=== PATIENT | female | born 1985 | race Caucasian/White ===

== ENCOUNTER 2017-08-12 05:20 | Inpatient (IN) | payer MEDICAID ==
[~2017-08-12] VITALS: Ht 152.4 cm; Wt 66.5 kg
[~2017-08-12 05:20] MED LIST: IBUP800T25 PO; PERCOCET PO
[2017-08-12 05:42] VITALS: BP 119/69; PULSE 20; RESP 20; Ht 152.4 cm; Wt 66.5 kg
[2017-08-12] MEDS ORDERED: LACTATED RINGER'S 1,000 ML IV SCH (05:56)
[2017-08-12] MEDS ORDERED: OXYTOCIN 30 UNITS/LR 500 ML IV SCH (06:00)
[2017-08-12] MEDS ORDERED: OXYTOCIN 30 UNITS/LR 500 ML IV PRN ×2 (06:00→10:30)
[2017-08-12] MEDS ORDERED: MISOPROSTOL 200 MCG TAB PR PRN ×2 (06:00→10:30)
[2017-08-12] MEDS ORDERED: IBUPROFEN 600 MG TAB PO PRN (06:00)
[2017-08-12] MEDS ORDERED: LIDOCAINE 1% (MPF) 30 ML INJ INJ PRN (06:00)
[2017-08-12] MEDS ORDERED: HYDROCODONE/APAP (5/325) TAB PO PRN ×3 (06:00→10:30)
[2017-08-12] MEDS ORDERED: METHYLERGONOVINE 0.2 MG INJ IM PRN ×2 (06:00→10:30)
[2017-08-12] MEDS ORDERED: AMPICILLIN 2 GM/NS (PMX) 100 ML IV ONE (06:00)
[2017-08-12] MEDS ORDERED: CARBOPROST 250 MCG INJ IM PRN ×2 (06:00→10:30)
[2017-08-12] MEDS ORDERED: BUTORPHANOL 2 MG INJ IV PRN ×2 (06:00)
[2017-08-12] MEDS ORDERED: LACTATED RINGER'S 1,000 ML IV PRN (06:00)
--- NOTE | 2017-08-12 06:35 | HP ---
Date/Time of Note Date/Time of Note DATE: 08/12/17 TIME: 06:30 OB - History Hx of Present Free Text/Dictation 31 Y.O A1(ect) at 38w 5d in active labor with intact membrane. VE 7-8/90%/0 UC's 2-3 min u/s marginal cord insertion admitted for expectant management Chief Complaint: UC's Estimated Due Date: Aug 21, 2017 : 2 Para: 0 Spontaneous : 0 Therapeutic : 1 Care: Good Care Ultrasounds: Normal mid trimester US Obstetrical Complications: None Medical Complications: None Past Family/Social History * Past Medical, Surgical, Family and Obstetric Histories reviewed from chart. Blood Type: O+ Rubella: immune RPR/VDRL: Negative GBS Status: Negative HBsAG: Negative OB Admission Exam Vital Signs Vital Signs Vital Signs Date Time Temp Pulse Resp B/P Pulse Ox O2 Delivery O2 Flow Rate FiO2 08/12/17 05:42 98.9 20 20 119/69 Room Air Physical Exam HEENT: WNL Heart: Rhythm Normal Lungs: Clear, Equal Abdomen: WNL Extremities: Normal Reflexes: Normal Cervical Dilatation: 7cm Effacement: Other (90%) Station: 0 Membranes: Intact Amniotic Fluid: Unevaluable Heart Rate: 140's Accelerations: Accelerations Present Decelerations: No Decelerations Varibility: Moderate Contractions on Admission: < 5 Minutes Apart Intensity: Moderate OB Assessment/Plan Reason for admission: active labor Other Assessment: IUP 38w5d Plan: Expectant Management BERENICE CARLOS MD Aug 12, 2017 06:35
--- NOTE | 2017-08-12 07:02 | TRIAGE ---
OB Triage Datetime Report Generated by CPN: 08/12/2017 07:02 Datetime: 08/12/2017 06:12 Assessment Type: Admission Assessment Vaginal Bleeding: None Maternal Assessment Level of Consciousness: Fully Conscious DTR's/Clonus: DTRs 2+; No Clonus Headache: Denies Blurred Vision: No Respiratory Effort: Unlabored; Regular Rhythm; Equal Expansion Breath Sounds, Left: Clear and Equal Breath Sounds, Right: Clear and Equal Nausea/Vomiting: Denies RUQ Epigastric Pain: Denies Lower Extremities Edema: None Upper Extremities Edema: None Facial Edema: None Fall Risk Assessment History of Falling: (0) No Secondary Diagnosis: (0) No Ambulatory Aid: (0) Bedrest/Nurse Assist IV Therapy: (0) No Gait: (0) Normal/Bedrest/Immobile Mental Status: (0) Oriented to Own Ability Fall Score: 0 Fall Risk Score Definition: No Risk: No action required Pain Assessment Pain Scale: 10 Pain Presence: Intermittent Pain Type: Sharp; Contraction Pain Location: Abdomen; Back Pain Goal: 5 Membrane Status: Intact Datetime: 08/12/2017 06:00 Stage of : Labor Temperature Route: Oral Labor Evaluation Frequency: 2-3 Monitor Mode: External Duration (sec)2399: 70-100 Quality: Strong Pattern: Normal: <= 5 Contractions in 10 Minutes Resting Tone [place]: Relaxed Datetime: 08/12/2017 05:48 Time of Arrival: 08/12/2017 05:20 EGA: 38.5 Arrived By: Wheelchair Arrived From: Home Chief Complaint: CXS SINCE 08/10/17 AT 0600 Movement: Present Contractions: Regular Time Contractions Began: 08/11/2017 06:00 Contractions: 2-3 Rupture of Membranes: Denies Vaginal Discharge: Denies Patient Complaints: None Time Provider Notified: 08/12/2017 05:53 Provider Notified: BREANNA Initial Plan: EFM, VE Datetime: 08/12/2017 05:47 Vaginal Exam Dilatation (cms): 7.5 Effacement (%): 100 Station: 0 Exam By: CATHY Vaginal Bleeding: None Cervix, Consistency: Soft Cervix, Position: Anterior Presentation 'A': Cephalic
[2017-08-12 07:10] LABS: BASOPHILS % 0.1 % (0.0-2.0); HEMATOCRIT 35.1 % (37.0-47.0); HEMOGLOBIN 11.5 g/dl (12.0-16.0); LYMPHOCYTES # 0.9 10^3/ul (0.8-2.9); LYMPHOCYTES % 5.2 % (15.0-51.0); MEAN CORPUSCULAR HEMOGLOBIN 25.2 pg (29.0-33.0); MEAN CORPUSCULAR HGB CONC 32.8 g/dl (32.0-37.0); MEAN PLATELET VOLUME 10.9 fl (7.4-10.4); MONOCYTE # 0.7 10^3/ul (0.3-0.9); MONOCYTES % 3.6 % (0.0-11.0); NEUTROPHIL # 16.3 10^3/ul (1.6-7.5); NEUTROPHILS % 90.5 % (39.0-77.0); PLATELET COUNT 312 10^3/UL (140-415); RED BLOOD COUNT 4.56 10^6/ul (4.20-5.40); RED CELL DISTRIBUTION WIDTH 15.7 % (11.5-14.5)
[2017-08-12 07:27] LABS: INR 0.93; PARTIAL THROMBOPLASTIN TIME 31.9 Sec (25.0-35.0); PROTIME 12.5 Sec (12.2-14.2)
[2017-08-12] MEDS ORDERED: MINERAL OIL LIGHT 10 ML VIAL TOP ONE (08:30)
[2017-08-12] MEDS: OXYTOCIN 30 UNITS/LR 500 ML IV SCH ×4 (08:57→19:03)
--- NOTE | 2017-08-12 09:37 | LDN ---
Date/Time of Note Date/Time of Note DATE: 08/12/17 TIME: 09:32 Delivery Summary Normal spontaneous vaginal delivery of a baby boy from OA position shoulders delivered without difficulty rest of the baby's body followed ,cord clamped after stopped pulsation, placenta spontaneous expulsion inspected complete, blood loss 200 cc, patient sustained small first-degree perineal laceration repaired with 3-0 chromic catgut. Weeks of Gestation 38 weeks 5 days Placenta Delivered: Spontaneously Meconium: none Episiotomy: No Laceration repair: Small first-degree perineal laceration repaired with 3-0 chromic catgut Anesthesia type: Local Estimated blood loss: 200 Sponge & Needle done & correct: Yes All needle counts correct: Yes Any foreign bodies felt in the: No Problems: Infant Delivery Information Sex Infant Sex: male Apgars 1 Minute: 8 5 Minute: 9 Suctioning Nose & mouth suctioned at shannon: Yes Delee suction performed: No Umbilical Cord Umbilical cord with: 3 Vessels Cord presentations: no nuchal cord Cord Blood was obtained: Yes CHERI JON MD Aug 12, 2017 09:37
[2017-08-12] MEDS ORDERED: AMPICILLIN 1 GM/NS (PMX) 50 ML IV SCH (10:00)
[2017-08-12] MEDS ORDERED: LACTATED RINGER'S 1,000 ML IV* SCH (10:28)
[2017-08-12] MEDS ORDERED: BENZOCAINE 20% 56 ML SPRAY TOP PRN (10:30)
[2017-08-12] MEDS ORDERED: ACETAMINOPHEN 325 MG TAB PO PRN (10:30)
[2017-08-12] MEDS ORDERED: OXYCODONE/ASPIRIN (4.88/325) TAB PO PRN ×2 (10:30)
[2017-08-12] MEDS ORDERED: WITCH HAZEL/GLYCERIN PAD PR PRN (10:30)
[2017-08-12] MEDS ORDERED: ONDANSETRON 4 MG INJ IV PRN (10:30)
[2017-08-12] MEDS ORDERED: DIBUCAINE 1% 30 GM OINT PR PRN (10:30)
[2017-08-12] MEDS ORDERED: LANOLIN 7 GM TUBE TOP PRN (10:30)
[2017-08-12 10:40] VITALS: BP 111/66; PULSE 75; RESP 16
[2017-08-12] MEDS: IBUPROFEN 600 MG TAB PO SCH ×2 (11:50→18:00)
[2017-08-12 16:27] VITALS: BP 109/60; PULSE 83; RESP 18
[2017-08-12 20:00] VITALS: BP 106/64; PULSE 80; RESP 18
[2017-08-12] MEDS: SENNA/DOCUSATE NA (8.6MG/50MG) TAB PO SCH (21:47)
[2017-08-13 04:05] VITALS: BP 106/64; PULSE 80; RESP 18
[2017-08-13] MEDS: IBUPROFEN 600 MG TAB PO SCH ×5 (06:00→23:28)
[2017-08-13 07:45] VITALS: BP 98/55; PULSE 74; RESP 16
[2017-08-13 10:00] LABS: BASOPHILS % 0.2 % (0.0-2.0); EOSINOPHILS # 0.1 10^3/ul (0.0-0.5); EOSINOPHILS % 0.6 % (0.0-7.0); HEMATOCRIT 30.8 % (37.0-47.0); HEMOGLOBIN 10.1 g/dl (12.0-16.0); LYMPHOCYTES % 15.2 % (15.0-51.0); MEAN CORPUSCULAR HEMOGLOBIN 25.4 pg (29.0-33.0); MEAN CORPUSCULAR HGB CONC 32.8 g/dl (32.0-37.0); MEAN CORPUSCULAR VOLUME 77.6 fl (82.0-101.0); MEAN PLATELET VOLUME 10.7 fl (7.4-10.4); MONOCYTE # 0.9 10^3/ul (0.3-0.9); NEUTROPHILS % 76.6 % (39.0-77.0); PLATELET COUNT 285 10^3/UL (140-415); RED BLOOD COUNT 3.97 10^6/ul (4.20-5.40); RED CELL DISTRIBUTION WIDTH 15.9 % (11.5-14.5); WHITE BLOOD COUNT 13.1 10^3/ul (4.8-10.8)
[2017-08-13] MEDS: SENNA/DOCUSATE NA (8.6MG/50MG) TAB PO SCH ×2 (11:38→21:00)
--- NOTE | 2017-08-13 12:43 | PN ---
Date/Time of Note Date/Time of Note DATE: 08/13/17 TIME: 12:42 OB Subjective Subjective Subjective No complaints. OB Objective Objective Objective Gen: NAD Abd: FF OB Assessment/Plan Other Assessment: PPD1 Other plan: -continue routine care -anticipate discharge home tomorrow SAMANTHA FINE Aug 13, 2017 12:43
[2017-08-13 15:59] VITALS: BP 105/62; PULSE 84; RESP 16
[2017-08-13 19:50] VITALS: BP 116/67; PULSE 67; RESP 18
[2017-08-14 04:10] VITALS: BP 116/67; PULSE 67; RESP 18
[2017-08-14] MEDS: IBUPROFEN 600 MG TAB PO SCH ×2 (05:50→12:24)
[2017-08-14] MEDS: SENNA/DOCUSATE NA (8.6MG/50MG) TAB PO SCH (09:00)
[2017-08-14] MEDS ORDERED: MEASLES,MUMPS,RUBELLA VACCINE INJ SC* ONE (09:00)
[2017-08-14 09:45] VITALS: BP 110/65; PULSE 77; RESP 18
--- NOTE | 2017-08-14 11:32 | PD.PPDC ---
VEHICLE SERVICE AGENT Discharge Instruction Condition Patient Condition: Good Diet Diet: Resume Regular Diet Activity/Restrictions Restrictions: No Exercising No Lifting No Driving No Sexual Activity Nothing in the Vagina No [place] No Tampons, douche Follow-up Follow-up with Physician: 2, Week/Weeks Provider Information: instructions given recommended to make appointment to be seen at the clinic in 2 weeks Return to clinic for JUDO INSTRUCTOR Instructions: Fever greater than 101 Chills Worsening abdominal pain Excessive Vaginal Bleeding More than 2 pads per hour Unable to tolerate diet OB Instructions: Breast Tenderness Depression Blurried Vision Headache CHERI JON MD Aug 14, 2017 11:32
--- NOTE | 2017-08-14 11:35 | DS ---
Date/Time of Note Date/Time of Note DATE: 08/14/17 TIME: 11:34 Discharge Summary Admission/Discharge Info Admit Date/Time Aug 12, 2017 at 05:54 Discharge Date/Time 02/2017 at 1130 Discharge Diagnosis Post normal vaginal delivery day 2 Patient Condition: Good Procedures Normal vaginal delivery Hospital Course Satisfactory uneventful Home Meds Active Scripts Oxycodone Hcl/Acetaminophen (Percocet) 1 Tab Tab, 1 TAB PO Q3H Y for PAIN LEVEL 1-5, #20 TAB Prov:DIAOMND FISCHER MD 11/23/14 Ibuprofen* (Ibuprofen*) 800 Mg Tab, 800 MG PO Q6, #30 TAB Prov:DIAMOND FISCHER MD 11/23/14 Follow-up Plan instruction given recommended to make appointment to be seen at the clinic in 2 week Primary Care Provider Care Physician No Primary Time spent on discharge: < 30 minutes CHERI JON MD Aug 14, 2017 11:35
== END 2017-08-14 15:25 | disposition home or self-care (01) | DRG 775 ==
LOC: OBT 05:20 → L-D 05:20 → OBT 05:52 → L-D 05:54 → PP1 10:43
PROVIDERS: ADMIT Obstetrics & Gynecology; ATTEND Obstetrics & Gynecology
PROC: 10E0XZZ Delivery of Products of Conception, External Approach (ICD-10-PCS; principal; 2017-08-12)
PROC: 0HQ9XZZ Repair Perineum Skin, External Approach (ICD-10-PCS; 2017-08-12)
PROC: 3E033VJ Introduction of Other Hormone into Peripheral Vein, Percutaneous Approach (ICD-10-PCS; 2017-08-12)
DX: O70.0 First degree perineal laceration during delivery (principal); Z37.0 Single live birth; Z3A.38 38 weeks gestation of pregnancy
CPT/HCPCS: 85025; 85610; 85730; 86592; 86900; 86901; 99464; G0463; J0290; J2590; J7120

== ENCOUNTER 2018-11-24 04:43 | Emergency (ER) | payer MEDICAID ==
[~2018-11-24] VITALS: Wt 63.4 kg
[~2018-11-24 04:43] MED LIST changes: +IBUP-1545 PO; -IBUP800T25 PO; -PERCOCET PO
[2018-11-24 04:49] VITALS: BP 134/65; PULSE 100; RESP 18
--- NOTE | 2018-11-24 06:33 | ERD ---
ER Documentation Chief Complaint Chief Complaint L EAR PAIN, FEVER X'S 2 DAYS HPI 32-year-old female, presents to the emergency department, complaining of 2 days with left ear pain, associated with fever, T-max today 101. The patient has been taking Motrin without improvement of the symptoms. ROS All systems reviewed and are negative except as per history of present illness. Medications Home Meds Active Scripts Ibuprofen* (Motrin*) 600 Mg Tab, 600 MG PO Q8, #20 TAB Prov:JEFF SNELL MD 11/24/18 Amoxicillin* (Amoxicillin*) 500 Mg Cap, 500 MG PO TID for 10 Days, CAP Prov:JEFF SNELL MD 11/24/18 Ibuprofen* (Ibuprofen*) 800 Mg Tab, 800 MG PO Q6, #30 TAB Prov:DIAMOND FISCHER MD 11/23/14 Allergies Allergies: Coded Allergies: No Known Allergy (Unverified , 08/12/17) PMhx/Soc History of Surgery: No Anesthesia Reaction: No Hx Neurological Disorder: No Hx Respiratory Disorders: No Hx Cardiac Disorders: No Hx Psychiatric Problems: No Hx Miscellaneous Medical Probl: No Hx Alcohol Use: No Hx Substance Use: No Hx Tobacco Use: No FmHx Family History: No diabetes, No coronary disease Physical Exam Vitals Vital Signs Date Temp Pulse Resp B/P (MAP) Pulse Ox O2 O2 Flow FiO2 Time Delivery Rate 11/24/18 101.0 100 18 134/65 95 04:49 (88) Physical Exam Const: No acute distress Head: Atraumatic Eyes: Normal Conjunctiva ENT: Left ear with otorrhea, unable to visualize TM Neck: Full range of motion. No meningismus. Resp: Clear to auscultation bilaterally Cardio: Regular rate and rhythm, no murmurs Abd: Soft, non tender, non distended. Normal bowel sounds Skin: No petechiae or rashes Back: No midline or flank tenderness Ext: No cyanosis, or edema Neur: Awake and alert Psych: Normal Mood and Affect Results 24 hrs Current Medications Medications Dose Sig/Lolis Start Time Status Last (Trade) Ordered Route PRN Stop Time Admin Dose Reason Admin 650 mg ONCE ONCE 11/24/18 DC 11/24/18 Acetaminophen PO 07:00 11/24/18 07:03 (Tylenol 07:01 Tab) Ibuprofen 400 mg ONCE ONCE 11/24/18 DC 11/24/18 (Motrin) PO 07:00 11/24/18 07:03 07:01 Procedures/MDM Vital signs stable, differential diagnosis include but not limited to: infection bacterial/viral/fungal. Tonsillitis, eustachian dysfunction, allergies, foreign body, cholesteatoma. Less likely mastoiditis, malignant otitis, meningitis. Physical examination and clinical presentation consistent most likely with otitis media. During the ED course the patient remained stable, no new complaints. Clinical impression discussed with the patient who agrees with management. The patient is stable to be treated outpatient and will be discharged home with a Rx for antibiotics and ibuprofen. Some side effects of prescribed medications (headache, rash, nausea, vomiting, diarrhea, drowsiness, bleeding, hypertension, interactions with other medications) were reviewed. The patient was instructed to follow up with the primary care provider in the next 48h. If symptoms persist, worsen or new symptoms develop, then patient should return to the ED immediately. Disclaimer: Inadvertent spelling and grammatical errors are likely due to EHR/dictation software use and do not reflect on the overall quality of patient care. Also, please note that the electronic time recorded on this note does not necessarily reflect the actual time of the patient encounter. Departure Diagnosis: Primary Impression: Left otitis media with effusion Condition: Stable Additional Instructions: Muchas renetta por [facility] para delarosa servicio. Esperamos que en delarosa visita a la tyson de emergencia delarosa problema medico haya sido solucionado y que se sienta mucho mejor. Para estar seguros que delarosa mejoria sigue en proceso, le pedimos el favor de hacer valentine aidan de seguimiento medico con delarosa doctor primario en los proximos 2-4 mccabe. Lleve con usted estos documentos y las medicinas recetadas. Si carlos sintomas empeoran, NO SE ESPERE, por favor regrese a tyson de emergencia INMEDIATAMENTE. En sherie que usted no tenga un mdico de atencin primaria: Llame al mdico o clnica comunitaria de referencia que aparece abajo ann marie las horas de consultorio para hacer valentine aidan para que le vean. CLINICAS: [facility] [phone] [facility] [phone] [facility] [phone] [facility] [phone] [place] [id number] [phone] [facility]. [phone] JEFF SUERO MD Nov 24, 2018 06:33
[2018-11-24] MEDS ORDERED: ACETAMINOPHEN 325 MG TAB PO ONE (07:00)
[2018-11-24] MEDS ORDERED: IBUPROFEN 200 MG TAB PO ONE (07:00)
[2018-11-24] MEDS ORDERED: IBUP-1542 PO (07:03)
[2018-11-24] MEDS ORDERED: AMOX500C2 PO (07:03)
== END 2018-11-24 07:13 | disposition home or self-care (01) ==
LOC: FTE 04:43
DX: H65.92 Unspecified nonsuppurative otitis media, left ear (principal)
CPT/HCPCS: Z7502; Z7610; 99283